=== PATIENT | male | born 1950 | race Caucasian/White ===

== ENCOUNTER 2016-07-23 12:08 | Emergency (ER) | payer BC ==
--- NOTE | 2016-07-23 12:23 | CPEKG ---
Heart Rate: 56 RR Interval: 1071 QRSD Interval: 106 QT Interval: 496 QTC Interval: 479 QRS [place]: -15 T Wave [place]: 68 EKG Severity - ABNORMAL ECG - EKG Impression: SINUS RHYTHM WITH LOW VOLTAGE "p" WAVES EKG Impression: BORDERLINE PROLONGED QT INTERVAL EKG Impression: ATRIAL FIB IS NO LONGER NOTED Electronically Signed By: Richard Stapleton 24-Jul-2016 12:08:24
[2016-07-23 12:27] VITALS: TEMP 98.4
--- NOTE | 2016-07-23 12:39 | EDPHY ---
H & P Time Seen by Provider: 07/23/16 12:33 HPI/ROS: CHIEF COMPLAINT: Dizziness HISTORY OF PRESENT ILLNESS: This patient is a 65 year old male with a history of atrial fibrillation who presents to the Emergency Department complaining of acute dizziness with associated nausea and vomiting beginning while in a meeting at 930 today and persisting to the present. He complains of feeling unsteady and reports that his dizziness as exacerbated when moving his head or changing positions. Denies headache, speech changes, vision changes, or weakness. He has never experienced episodes like this before. Denies recent illnesses or infections. He reports four episodes of syncope over the past two months with head trauma for which he has had a normal CT of the head. He has not followed up with cardiology following these episodes. He did take one half tablet of Suboxone which he takes PRN at 830 today. He also reports recent changes to his medications for depression and anxiety. REVIEW OF SYSTEMS: Constitutional: +unintentional weight loss, no fever, no chills Eyes: No visual changes ENT: No sore throat Respiratory: No cough, no shortness of breath Cardiac: No chest pain Gastrointestinal: +nausea, +vomiting, no abdominal pain Genitourinary: No hematuria, no dysuria Musculoskeletal: No leg pain or swelling Skin: No rash Neurological: +dizziness, no headache, no numbness, no weakness Psychiatric: No depression Past Medical/Surgical History: Atrial fibrillation, hypertension (diltiazem), depression and anxiety (Prozac), chronic back pain (Suboxone). Social History: Daily smoker. . Lives in [place], works in [place]. Smoking Status: Current every day smoker Physical Exam: General Appearance: Alert, no distress Eyes: Pupils equal and round, no conjunctival pallor or injection, horizontal nystagmus with fast component to the left ENT, Mouth: Mucous membranes moist Neck: Normal inspection Respiratory: Lungs are clear to auscultation Cardiovascular: Regular rate and rhythm Gastrointestinal: Abdomen is soft and non- tender Neurological: Alert, oriented x3, cranial nerves II through XII intact, motor 5/ 5, sensory intact to light touch, normal gait Skin: Warm and dry, no rash Extremities: Nontender, no pedal edema Psychiatric: Mood and affect normal Constitutional: Initial Vital Signs Temperature (C) 36.9 C 07/23/16 12:26 Heart Rate 66 07/23/16 12:26 Respiratory Rate 18 04/04/17 12:26 Blood Pressure 131/81 H 07/23/16 12:26 O2 Sat (%) 93 07/23/16 12:26 O2 Delivery Mode Room Air Allergies/Adverse Reactions: No Known Allergies Allergy (Unverified 07/13/15 07:30) Home Medications: Medication Instructions Recorded Diltiazem HCl [Diltiazem ER] 240 mg PO DAILY 07/13/15 Fluoxetine HCl [Prozac 40 mg] 40 mg PO DAILY 07/13/15 [place] Aspartate 07/23/16 Meclizine HCl [Meclizine HCl 25 mg 25 mg PO TID PRN #15 tab 07/23/16 (RX,OTC)] Seroquel 07/23/16 Medical Decision Making - Diagnostics EKG Interpretation: EKG interpreted by me reveals normal sinus rhythm, rate 56; borderline prolonged QT interval. ED Course/Re-evaluation: 65 year old male who presents with symptoms of peripheral vertigo including room -spinning dizziness, nausea, and vomiting beginning acutely while at work today. Exam is positive for horizontal nystagmus with fast component to the left. Neuro exam is normal and he does not has concerning signs/sx of central etiology of sx. He does have a history of atrial fibrillation but is in normal sinus rhythm here in the ED based on EKG. Will proceed with treatment of vertigo and work-up for cardiac etiology. He describes a complex medication history for treatment of his anxiety and chronic pain which I suggested he follow-up with psychiatry to address. He also reports multiple syncopal episodes over the past month for which I strong recommended he see cardiology this week. IV established. 1L IV NS and 25mg PO Meclizine administered. Labs obtained and are unremarkable. Troponin is negative. He now states that he had a similar episode a few months ago related to suboxone. Encouraged him to dc suboxone (he takes suboxone infrequently). 1348: I discussed imaging and lab results with the patient. On reevaluation, he is feeling much better and reports significant improvement to his dizziness and nausea. Will continue to observe in the ED. Dizziness has resolved. Will d/c home. Differential Diagnosis: The differential diagnosis for the patient's dizziness included but was not limited to peripheral and central causes of vertigo, orthostatic causes including dehydration, cardiogenic and neurogenic causes, and blood loss. - Data Points Laboratory Results: Laboratory Results 07/23/16 12:30 07/23/16 12:30 Medications Given: Discontinued Medications Sodium Chloride (Ns) 1,000 mls @ 0 mls/hr IV ONCE ONE PRN Reason: Wide Open Stop: 07/23/16 12:58 Last Admin: 07/23/16 13:00 Dose: 1,000 mls Meclizine HCl (Meclizine Hcl) 25 mg PO EDNOW ONE Stop: 07/23/16 12:59 Last Admin: 07/23/16 13:25 Dose: 25 mg Departure - Departure Disposition: Home, Routine, Self-Care Clinical Impression: Vertigo Condition: Good Instructions: Vertigo (ED) Additional Instructions: 1. Take Meclizine as prescribed, as needed for episodes of vertigo (dizziness and nausea). 2. I strongly encourage you to follow-up with cardiology as soon as possible. Our on-call blind escort is Dr. Radha Camarena. You are welcome to follow-up with a blind escort closer to home if you would prefer. 3. Return to the Emergency Department with uncontrollable vomiting, severe headache, fainting, heart palpitations, or for other serious concerns. Referrals: Radha Camarena MD [Medical Doctor] - As per Instructions Prescriptions: Meclizine HCl [Meclizine HCl 25 mg (RX,OTC)] 25 mg PO TID PRN #15 tab PRN Reason: Dizziness Report Scribed for: Sue Dwyer Report Scribed by: Duyen Kim Date of Report: 07/23/16 Time of Report: 12:34 Physician Review and Approval Statement: 07/23/16 12:34 Portions of this note were transcribed by a medical insurance claims processor. I personally performed a history, physical exam, medical decision making, and confirmed accuracy of information the transcribed note.
[2016-07-23] MEDS ORDERED: NS 1,000 ML IV ONE (12:57)
[2016-07-23] MEDS ORDERED: MECLIZINE HCL 25 MG TAB PO ONE (12:58)
[2016-07-23 13:10] LABS: % IMMATURE GRANULYOCYTES 0.6 % (0.0-1.1); ABSOLUTE IMMATURE GRANULOCYTES 0.06 10^3/uL (0.00-0.10); ADD DIFF? NO; ADD MORPH? NO; ADD SCAN? NO; ATYPICAL LYMPHOCYTE FLAG 0 (0-99); FRAGMENT RBC FLAG 0 (0-99); HEMATOCRIT 37.9 % (40.0-51.0); HEMOGLOBIN 12.8 g/dL (13.7-17.5); LEFT SHIFT FLG 10 (0-99); LIPEMIA HEMOLYSIS FLAG 90 (0-99); MEAN CELL HEMOGLOBIN 30.3 pg (27.9-34.1); MEAN CELL HEMOGLOBIN CONCENTR. 33.8 g/dL (32.4-36.7); MEAN CELL VOLUME 89.8 fL (81.5-99.8); MEAN PLATELET VOLUME 9.3 fL (8.7-11.7); PLATELET CLUMPS FLAG 10 (0-99); PLATELET COUNT 197 10^3/uL (150-400); RED BLOOD CELL COUNT 4.22 10^6/uL (4.40-6.38); RED CELL DISTRIBUTION WIDTH 12.3 % (11.5-15.2)
[2016-07-23 13:14] LABS: ANION GAP 11 mEq/L (8-16); CALCIUM 9.3 mg/dL (8.5-10.4); CARBON DIOXIDE 21 mEq/l (22-31); CHLORIDE 109 mEq/L (97-110); CREATININE 0.8 mg/dL (0.7-1.3); GLOMERULAR FILTRATION RATE > 60; GLUCOSE 152 mg/dL (70-100); POTASSIUM 4.3 mEq/L (3.5-5.2); SODIUM 141 mEq/L (134-144)
[2016-07-23 13:26] LABS: TROPONIN I < 0.012 ng/mL (0-0.034)
[2016-07-23 14:03] VITALS: RESP 16
[2016-07-23 15:23] VITALS: BP 146/77; PULSE 68; O2SAT 91
== END 2016-07-23 15:22 | disposition home or self-care (01) ==
LOC: EDUNIT#
DX: R42 Dizziness and giddiness (principal); I10 Essential (primary) hypertension; F17.200 Nicotine dependence, unspecified, uncomplicated